=== PATIENT | female | born 1935 | race Caucasian/White ===

== ENCOUNTER 2016-12-16 22:43 | Inpatient (IN) | payer MEDICARE, OTHER ==
[~2016-12-16] VITALS: Ht 167.6 cm; Wt 104.5 kg
[2016-12-16] MEDS ORDERED: MIDAZOLAM 50 MG in DEXTROSE 5% 40 ML IV STA (22:47)
[2016-12-16] MEDS ORDERED: VECURONIUM 100 MG in DEXTROSE 5% 100 ML IV ONE (22:47)
[2016-12-16] MEDS ORDERED: CEFEPIME 2GM/50 ML (PMX) 50 ML IVPB STA (22:47)
[2016-12-16] MEDS ORDERED: SOD CHLORIDE 0.9% 1,000 ML IV STA (22:47)
[2016-12-16] MEDS ORDERED: SODIUM CHLORIDE 0.9% 500 ML BAG IV* STA (22:47)
[2016-12-16 22:49] VITALS: Ht 167.6 cm; Wt 104.5 kg
[2016-12-16] MEDS ORDERED: LOSA50TA6 PO (22:57)
[2016-12-16] MEDS ORDERED: ATOR10TA65 PO (22:57)
[2016-12-16] MEDS ORDERED: METO10TA92 PO (22:57)
[2016-12-16] MEDS ORDERED: LEVE500T8 PO (22:58)
[2016-12-16] MEDS ORDERED: ASCO500C7 PO (22:58)
[2016-12-16] MEDS ORDERED: METF-382 PO (22:59)
[2016-12-16] MEDS ORDERED: ERGO500014 PO (22:59)
[2016-12-16] MEDS ORDERED: FURO40TA4 PO (22:59)
[2016-12-16] MEDS ORDERED: DIGO125T6 PO (22:59)
[2016-12-16] MEDS ORDERED: CARV12.579 PO (23:00)
[2016-12-16] MEDS ORDERED: FENTAnyl 50 MCG/ML VIAL IV PRN (23:00)
[2016-12-16] MEDS ORDERED: POTA8CAP PO (23:00)
[2016-12-16] MEDS ORDERED: VANCOMYCIN 1 GM (PMX) 250 ML IVPB ONE (23:00)
[2016-12-16 23:02] LABS: HEMATOCRIT 40.8 % (37.0-47.0); HEMOGLOBIN 13.1 g/dl (12.0-16.0); MEAN CORPUSCULAR HEMOGLOBIN 29.3 pg (29.0-33.0); MEAN CORPUSCULAR VOLUME 91.5 fl (82.0-101.0); MEAN PLATELET VOLUME 9.1 fl (7.4-10.4); RED BLOOD COUNT 4.46 10^6/ul (4.20-5.40); RED CELL DISTRIBUTION WIDTH 14.4 % (11.5-14.5); UNCORRECTED WBC 21.8 10^3/ul (4.8-10.8); WHITE BLOOD COUNT 21.8 10^3/ul (4.8-10.8)
[2016-12-16 23:09] LABS: INR 2.06; PROTIME 23.4 Sec (12.2-14.2); PT RATIO 1.8
[2016-12-16 23:10] LABS: ALBUMIN 3.4 g/dl (3.3-4.9); CHLORIDE 104 mmol/L (97-110)
[2016-12-16 23:11] LABS: POTASSIUM 4.3 mmol/L (3.5-5.1); SODIUM 145 mmol/L (135-144)
[2016-12-16 23:12] LABS: CREATININE 1.13 mg/dl (0.44-1.00)
[2016-12-16 23:13] LABS: ALANINE AMINOTRANSFERASE 58 IU/L (13-69); ALBUMIN/GLOBULIN RATIO 1.03; ALKALINE PHOSPHATASE 147 IU/L (42-121); ANION GAP 29 (8-16); ASPARTATE AMINO TRANSFERASE 71 IU/L (15-46); BILIRUBIN,INDIRECT 0.3 mg/dl (0-1.1); BILIRUBIN,TOTAL 0.3 mg/dl (0.2-1.3); BLOOD UREA NITROGEN 16 mg/dl (7-20); CALCIUM 8.6 mg/dl (8.4-10.2); CARBON DIOXIDE 16 mmol/L (21-31); CONDITION 1; GLUCOSE 203 mg/dl (70-220); PHOSPHORUS 10.7 mg/dl (2.5-4.9); SUSPECT 1; TOTAL PROTEIN 6.7 g/dl (6.1-8.1)
[2016-12-16 23:14] LABS: LH ANALYZER COMMENTS 1; MAGNESIUM 2.1 mg/dl (1.7-2.5)
[2016-12-16] MEDS ORDERED: NORepinephrine 8MG/250 ML (PMX 250 ML ONE (23:25)
[2016-12-16 23:29] LABS: TROPONIN-I 0.017 ng/ml (0.00-0.12)
[2016-12-16 23:31] LABS: ACETAMINOPHEN < 10.0 ug/ml (10.0-30.0); ETHANOL < 10.0 mg/dl; SALICYLATE < 1.0 mg/dl (5.0-30.0)
[2016-12-16] MEDS ORDERED: SODIUM CHLORIDE 0.9% 1L BAG IV* STA (23:35)
[2016-12-16] MEDS ORDERED: NORepinephrine 8MG/250 ML (PMX 250 ML IV STA (23:35)
--- NOTE | 2016-12-16 23:38 | RADRPT ---
PROCEDURE: XR Chest. CLINICAL INDICATION: Pain status post trauma TECHNIQUE: AP Portable chest. COMPARISON: None available FINDINGS: The soft tissues and bones are remarkable for endotracheal tube 2.4 cm above the lisandra. Mild dextr oscoliosis, spondylosis and bilateral acromioclavicular osteoarthropathy is present. Mild cardiomeg asmita and vascular calcifications are present of the thoracic aorta. Mild interstitial edema is prese nt. No focal infiltrates, masses, or effusions are noted. A radio dense foreign foreign body is sup erimposed over the left lung apex which limits evaluation. No evidence for pneumothorax is present. IMPRESSION: 1. Endotracheal tube 2.4 cm above the lisandra. 2. Mild cardiomegaly and atherosclerotic vascular disease RPTAT: HDC .Ayah Hayden MD, Date Time Electronically viewed and signed by .Ayah Hayden MD, on 12/16/2016 23:37 .C/
[2016-12-16] MEDS ORDERED: IOHEXOL 100 ML ONE ×2 (23:40)
[2016-12-16] MEDS ORDERED: SOD CHLORIDE 0.9% 100 ML ONE (23:40)
[2016-12-17] VITALS (75 sets, daily range): BP systolic 0–123; BP diastolic 0–95; PULSE 0–87; RESP 14–22; TEMP 99.4
--- NOTE | 2016-12-17 00:04 | ERA ---
ER Documentation Chief Complaint Date/Time DATE: 12/16/16 TIME: 23:57 Chief Complaint BIBA RA 102,cardica arrest from home, ROSC HPI 81-year-old female prior history of stroke, chronic a aphasia who presents from home after cardiac arrest. The history is somewhat limited, later we were able to obtain history from family that states the patient did fall earlier today and they called 911. EMS reports PEA arrest upon arrival. The patient had return of spontaneous circulation after ACLS and 3 rounds of epi. The patient arrives intubated, obtunded and apparently hypoxic. Remainder of HPI is very limited. ROS All systems reviewed and are negative except as per history of present illness. Medications Home Meds Reported Medications Carvedilol* (Carvedilol*) 12.5 Mg Tablet, 12.5 MG PO DAILY, #60 TAB 12/16/16 Potassium Chloride* (Potassium Chloride*) 8 Meq Capsule.er, 8 MEQ PO DAILY, CAP 12/16/16 Furosemide* (Furosemide*) 40 Mg Tablet, 40 MG PO DAILY, TAB 12/16/16 Metformin Hcl* (Metformin Hcl*) 500 Mg Tablet, 500 MG PO WITH BREAKFAST, #30 TAB 12/16/16 Ergocalciferol* (Drisdol* (Vitamin D2)) 50,000 Unit Capsule, 51342 UNIT PO Q7D, CAP 12/16/16 Digoxin* (Lanoxin*) 0.125 Mg Tablet, 0.125 MG PO DAILY, TAB 12/16/16 Ascorbic Acid* (Vitamin C*) 500 Mg Capsule.sa, 500 MG PO DAILY, CAP 12/16/16 Levetiracetam* (Levetiracetam*) 500 Mg Tablet, 500 MG PO DAILY, TAB 12/16/16 Losartan Potassium* (Losartan Potassium*) 50 Mg Tablet, 50 MG PO DAILY, TAB 12/16/16 Atorvastatin Calcium (Atorvastatin Calcium) 10 Mg Tablet, 10 MG PO QHS, #30 TAB 12/16/16 Metoclopramide* (Reglan*) 10 Mg Tablet, 10 MG PO BID WITH MEALS, TAB 12/16/16 Allergies Allergies: Coded Allergies: No Known Allergy (Unverified , 12/16/16) PMhx/Soc History of Surgery: No Anesthesia Reaction: No Hx Neurological Disorder: Yes (cva) Hx Respiratory Disorders: No Hx Cardiac Disorders: Yes (htn, hld) Hx Psychiatric Problems: No Hx Miscellaneous Medical Probl: Yes (dm) Hx Alcohol Use: No Hx Substance Use: No Hx Tobacco Use: No Smoking Status: Never smoker FmHx Family History: No diabetes Physical Exam Vitals Vital Signs Date Time Temp Pulse Resp B/P Pulse Ox O2 Delivery O2 Flow Rate FiO2 12/17/16 01:30 101.1 12/17/16 01:05 94 22 100 100 12/17/16 00:24 95 12/16/16 23:30 90 20 84/63 99 Mechanical Ventilator 12/16/16 23:23 85 20 80/60 100 Mechanical Ventilator 12/16/16 23:20 143 20 48/24 100 Mechanical Ventilator 12/16/16 23:15 122 20 78/56 100 Mechanical Ventilator 12/16/16 23:10 135 20 121/101 94 Mechanical Ventilator 12/16/16 23:00 140 20 83/60 100 Mechanical Ventilator 12/16/16 22:57 131 18 92/78 100 Mechanical Ventilator 12/16/16 22:55 138 18 54/28 100 Mechanical Ventilator 12/16/16 22:49 99.9 147 22 109/69 100 12/16/16 22:45 138 27 100 100 Physical Exam General: Unresponsive, cyanotic head Head: Abrasion noted to the forehead Eyes: Fixed pupils ENT: Moist mucous membranes Neck: Supple, no lymphadenopathy no midline tenderness, patient placed in a c- collar Respiratory: Rhonchi bilaterally Cardiovascular: Irregularly irregular, no murmurs rubs gallops Abdominal: Soft, non-protuberant, no pulsatile mass : Deferred MSK: No spontaneous motor activity Neurologic: No spontaneous neurologic activity Skin: Abrasion to forehead Result Diagram: 12/16/16224912/16/162249 Results 24 hrs Laboratory Tests Test 12/16/16 22:50 12/17/16 01:45 Acetaminophen Level < 10.0ug/ml Activated Partial Thromboplast Time 99.8Sec Pending Alanine Aminotransferase (ALT/SGPT) 58IU/L Albumin 3.4g/dl Albumin/Globulin Ratio 1.03 Alkaline Phosphatase 147IU/L Anion Gap 29 Aspartate Amino Transf (AST/SGOT) 71IU/L Basophils # 10^3/ul Basophils % % Blood Urea Nitrogen 16mg/dl Calcium Level 8.6mg/dl Carbon Dioxide Level 16mmol/L Chloride Level 104mmol/L Clumped Platelets OCCASIONAL Creatinine 1.13mg/dl Differential Comment MANUAL DIFF Direct Bilirubin 0.00mg/dl Eosinophils # 0.410^3/ul Eosinophils % 2.0% Ethyl Alcohol Level < 10.0mg/dl Free Thyroxine Index 1.84ug/ml Giant Platelets FEW Globulin 3.30g/dl Glucose Level 203mg/dl Hematocrit 40.8% Hemoglobin 13.1g/dl INR International Normalized Ratio 2.06 2.68 Indirect Bilirubin 0.3mg/dl Lactic Acid Level 16.9mmol/L Lymphocytes # 7.010^3/ul Lymphocytes % 32.0% Magnesium Level 2.1mg/dl Mean Corpuscular Hemoglobin 29.3pg Mean Corpuscular Hemoglobin Concent 32.0g/dl Mean Corpuscular Volume 91.5fl Mean Platelet Volume 9.1fl Monocytes # 0.910^3/ul Monocytes % 4.0% Neutrophils # 11.610^3/ul Neutrophils % 53.0% Nucleated Red Blood Cells # 10^3/ul Nucleated Red Blood Cells % 3.0/100WBC Phosphorus Level 10.7mg/dl Platelet Count 20037^3/UL Pending Potassium Level 4.3mmol/L Prothrombin Time 23.4Sec Pending Prothrombin Time Ratio 1.8 2.3 Red Blood Count 4.4610^6/ul Red Cell Distribution Width 14.4% Salicylates Level < 1.0mg/dl Sodium Level 145mmol/L Thyroxine (T4) 4.9ug/dl Total Bilirubin 0.3mg/dl Total Protein 6.7g/dl Triiodothyronine (T3) Uptake 37.6% Troponin I 0.017ng/ml White Blood Count 21.810^3/ul D-Dimer Pending Fibrinogen Pending Plasma Fibrin Degradation Products Pending Thrombin Time Pending Current Medications Medications (Trade) Dose Ordered Sig/Elias Route PRN Reason Start Time Stop Time Status Last Admin Dose Admin Sodium Chloride (NS) 1,000 ml @ 1,000 mls/hr Q1H STAT IV 12/16/16 22:47 12/16/16 23:46 DC 12/16/16 22:59 Sodium Chloride (NS) 500 ml ONCE STAT IV* 12/16/16 22:47 12/16/16 22:52 DC 12/16/16 22:59 Fentanyl 25 mcg 25 mcg Q10M PRN IV SEDATION 12/16/16 23:00 Midazolam HCl 50 mg/Dextrose 50 ml @ 2 mls/hr Q24H STAT IV 12/16/16 22:47 12/17/16 22:46 12/17/16 00:58 Vecuronium [place] 100 mg/ Dextrose 100 ml @ 6.27 mls/hr [id number] ONCE IV 12/16/16 22:47 12/17/16 14:43 12/17/16 01:53 Cefepime HCl 50 ml @ 100 mls/hr ONCE STAT IVPB 12/16/16 22:47 12/16/16 23:16 DC 12/16/16 23:00 Vancomycin HCl 250 ml @ 125 mls/hr ONCE ONCE IVPB 12/16/16 23:00 12/17/16 00:59 DC 12/17/16 00:58 Norepinephrine (Levophed) 250 ml @ ud STK-MED ONCE .ROUTE 12/16/16 23:25 12/16/16 23:26 DC Sodium Chloride 3240 ml 3,240 ml BOLUS OVER 2 HOURS STAT IV* 12/16/16 23:35 12/16/16 23:37 DC 12/17/16 00:12 Norepinephrine (Levophed) 250 ml @ 7.5 mls/hr ONCE STAT IV 12/16/16 23:35 12/18/16 08:54 12/17/16 00:11 IV Flush 10 ml 10 ml STK-MED ONCE .ROUTE 12/16/16 23:40 12/16/16 23:41 DC 12/17/16 00:26 Sodium Chloride 100 ml @ ud STK-MED ONCE .ROUTE 12/16/16 23:40 12/16/16 23:41 DC 12/17/16 00:26 Iohexol 100 ml @ ud STK-MED ONCE .ROUTE 12/16/16 23:40 12/16/16 23:41 DC 12/17/16 00:26 Iohexol (Omnipaque) 100 ml @ ud STK-MED ONCE .ROUTE 12/16/16 23:40 12/16/16 23:41 DC 12/17/16 00:26 Amiodarone HCl 100 ml 100 ml ONCE STAT IV* 12/17/16 00:36 12/17/16 00:38 DC 12/17/16 00:47 Amiodarone HCl 500 ml @ 0 mls/hr ONCE STAT IV 12/17/16 00:36 12/17/16 00:38 DC Dextrose/Sodium Chloride (D5-1/2ns) 1,000 ml @ 100 mls/hr Q10H IV 12/17/16 01:11 Ondansetron HCl (Zofran Inj) 4 mg Q6H PRN IV NAUSEA AND/OR VOMITING 12/17/16 01:30 Albuterol (Ventolin Hfa) 4 puff Q2H RESP THERAPY PRN INH SHORTNESS OF BREATH 12/17/16 01:30 Ipratropium [place] (Atrovent Hfa) 4 puff Q2H RESP THERAPY PRN INH SHORTNESS OF BREATH 12/17/16 01:30 Acetaminophen (Tylenol Liquid) 650 mg Q6H PRN PO PAIN LEVEL 1-3 OR FEVER 12/17/16 01:30 Acetaminophen (Tylenol Supp) 650 mg Q4H PRN MS PAIN LEVEL 1-3 OR FEVER 12/17/16 01:30 Lorazepam (Ativan) 1 mg Q2H PRN IV ANXIETY 12/17/16 01:30 Pantoprazole (Protonix Iv) 40 mg DAILY@06 IV 12/17/16 06:00 Heparin Sodium (Porcine) 5000 unit 5,000 unit Q12 SC 12/17/16 09:00 Propofol 100 ml @ 3.137 mls/ hr PER PROTOCOL IV 12/17/16 01:30 Norepinephrine (Levophed) 250 ml @ 1.875 mls/ hr PER PROTOCOL IV 12/17/16 01:30 Vancomycin HCl VANCOMYCIN PER PHARMACY PER PROTOCOL XX 12/17/16 01:30 Cefepime HCl 50 ml @ 100 mls/hr Q12 IVPB 12/17/16 01:29 Sodium Chloride 1,000 ml @ 1,000 mls/hr Q1H ONCE IV 12/17/16 01:30 12/17/16 02:29 12/17/16 02:09 Vancomycin HCl (Vancocin) 250 ml @ 125 mls/hr ONCE ONCE IVPB 12/17/16 04:00 12/17/16 05:59 Acetaminophen 650 mg 650 mg ONCE ONCE MS 12/17/16 01:30 12/17/16 01:31 DC Vancomycin HCl 1.5 gm/Sodium Chloride 250 ml @ 83.333 mls/ hr Q24H IVPB 12/18/16 01:00 Vasopressin 60 unit/Sodium Chloride 60 ml @ 2.4 mls/hr ONCE STAT IV 12/17/16 01:39 12/18/16 02:38 12/17/16 02:06 Dopamine HCl/ Dextrose 250 ml @ 0 mls/hr ONCE STAT IV 12/17/16 01:39 12/17/16 01:40 DC 12/17/16 02:01 Hydrocortisone 100 mg 100 mg ONCE ONCE IV 12/17/16 02:00 12/17/16 02:01 DC Amiodarone HCl (Cordarone 900mg/ D5W Drip) 500 ml @ 0 mls/hr Q0M IV 12/17/16 02:00 12/18/16 01:59 12/17/16 02:04 Procedures/MDM EKG, MONITORS, & DIAGNOSTIC IMAGING: EKG #1: EKG: I reviewed and interpreted a 12-lead EKG. Rhythm: A. fib with RVR, Ectopy: None Intervals: Right bundle branch block ST segments: No elevations or depressions T waves: No contiguous inversions EKG #2 EKG: I reviewed and interpreted a 12-lead EKG. Rhythm: Normal sinus rhythm Ectopy: PVC Intervals: Right bundle branch block ST segments: No elevations or depressions T waves: No contiguous inversions Chest x-ray: I reviewed and interpreted a 1 view of the chest Mediastinum: No enlargement Cardiac silhouette: No cardiomegaly Airspace: Clear lung delatorre bilaterally without evidence of pneumothorax Bones: No evidence of fracture Endotracheal tube above the lisandra CT brain: IMPRESSION: 1. No evidence of acute intracranial hemorrhage or acute infarcts. However with contrast opacification of the vessels differentiating subarachnoid hemorrhage from contrast enhanced vessels is not possible. Recommend brain MRI with diffusion as clinically indicated. 2. 4 mm anterior communicating artery dilatation concerning for aneurysm. Recommend MR angiography or CT angiography of the [place] to optimally evaluate. 3. Chronic left middle cerebral artery infarct with ex vacuo dilatation of the left lateral ventricle. A call report was made to BEA Crawford at 12/17/2016 12:15:36 AM following the completion of the examination by the undersigned. [facility] cervical spine: IMPRESSION: 1. No evidence for acute fractures or traumatic subluxations. 2. Right subarticular recess osteophyte at C4-5 with associated moderate central canal stenosis. 3. Central 3 mm disk osteophyte complex and C5-6 with moderate central canal stenosis. 4. Mild broad-based disk osteophyte complex at the C6-7 level with mild central canal stenosis 5. Multilevel neural foraminal stenosis as described above at the C3-4 through C6-7 levels 6. Multinodular enlarged right thyroid lobe measuring 5.5 cm AP by 4.5 cm in transverse dimensions. Recommend thyroid ultrasound , potential biopsy, and correlation with serologies to differentiate multinodular goiter for thyroid carcinoma. A call report was made to BEA Crawford at 12/17/2016 12:28:05 AM following the completion of the examination by the undersigned. CT chest: IMPRESSION: No evidence of pulmonary embolism or aortic dissection. Mild cardiomegaly and congestive failure. Small right and trace left-sided pleural effusion with underlying atelectasis. Prominent main pulmonary artery consistent with pulmonary artery hypertension. Enlarged right thyroid. Cirrhotic liver. Status post cholecystectomy. Mild nonspecific stranding surrounding the pancreas. Clinical correlation is needed to exclude pancreatitis. T10 vertebral body fracture with 10 mm distraction. Osteopenia. A call report was made to Dr. García at 12:12 a.m. PROCEDURES: Direct laryngoscopy I performed direct laryngoscopy using the Glidescope to confirm endotracheal tube placement. A 3 oh blade was used to visualize the endotracheal tube passing through the vocal cords. Confirmation of placement was obtained. Central Line Note: Consent: Emergent Indication: Critically ill patient requiring specialized vascular access for fluid or pressor management Location: Right femoral vein Procedure: Sterile procedure was observed throughout insertion of the central line. The insertion site was prepped with sterile solution. Insertion of a needle into the vein was obtained with return of dark, nonpulsatile blood. The wire was then threaded through the needle without complication. . A small skin incision was made, the needle was removed intact, dilation of the vein was performed and insertion of a triple lumen catheter was completed. The catheter was then sutured to the skin. All 3 ports chani back and flushed without difficulty. A sterile dressing was applied. The patient tolerated the procedure well there were no complications. Synchronized cardioversion The patient was in A. fib with RVR with hypotension. The patient would benefit from synchronized cardioversion. The patient had synchronous cardioversion with 100 J a single cardioversion shock was applied with conversion to sinus rhythm and improved blood pressure from 40 systolic to 80 systolic. Consent was not obtained because of emergent condition LAB INTERPRETATION: Significant leukocytosis, lactic acidosis MEDICAL DECISION MAKING: The patient presents with PA cardiac arrest. Unclear etiology. The patient is hypotensive with A. fib with RVR, appears to be cyanotic on the head alone. There is also report of possible fall and head trauma earlier in the day. An extremely broad differential exist including sepsis, intracranial hemorrhage, acute coronary syndrome, pulmonary embolism, dissection among others. The patient requires aggressive resuscitation efforts. It should be noted that I have a conversation with the patient's son. I used a family member for an manufacture specialist. The patient wishes to have aggressive care and remains full code. ER COURSE: Upon arrival the patient's endotracheal tube was checked. The patient had an initial blood pressure of 106 systolic but rapidly declined and was persistently hypotensive. Peripheral IVs were inserted and the patient was written for aggressive fluid resuscitation with 30 cc/kg bolus of saline. Broad -spectrum antibiotics were ordered. The patient was noted to be in atrial fibrillation with RVR and was hypotensive and hemodynamically unstable. This was an indication for synchronized cardioversion. The patient was cardioverted as documented above with improvement of blood pressure but still the patient remained hypotensive. An emergent femoral vein central line was placed and the patient was started on levo. It should be noted that the patient was a PEA arrest. The patient had return of spontaneous circulation and meets criteria for therapeutic hypothermia. I do not believe this is a cardiogenic event and do not believe that the patient would benefit from emergent Manager Party activation. The patient may require studying once more stable at this time. The patient has multiple insults including significant leukocytosis and lactic acidosis. I am pending CT imaging at this time. The patient is in a cervical collar given recent description of head trauma. It is either the patient has what appears to be cyanosis to the head alone. This does raise my concern for possible PE versus dissection. CT of the chest will be ordered without laboratory testing given emergent condition possible. The patient's CT imaging is otherwise unremarkable other than a T10 fracture. The patient is remained in C-spine precautions and logroll precautions. The patient has persistent and progressive hypotension. The patient also had a run of NSVT. The patient was started on amiodarone bolus and drip. The patient was initiated on multiple pressors including vaso-and dopa, stress dose steroids were also added. At around 130 or 2 AM the family and produced medication list that shows evidence of the use of digoxin. A dig level has been sent. The patient also has persistent bleeding from IV sites and an elevated INR. The patient does not have a list of anticoagulant. Concern for DIC, DIC panel was ordered. I kept the patient and/or family informed of laboratory and diagnostic imaging results throughout the emergency room course. DISPOSITION PLAN: ICU CONSULTATION: Accepting care team and consultations: I discussed the current laboratory data, diagnostic imaging and emergency care provided. Admitting team: Dr. Carr Admitting team indication: Insurance directed Sepsis Documentation: Patient's infectious symptoms have not stabilized and the patient is at risk of rapid decompensation. The patient will be admitted for careful hydration, antibiotic therapy, and infectious source control. SEVERE SEPSIS CRITERIA: Infectious source: Unknown at this time consider pneumonia versus aspiration End organ damage indicated by: [Lactate > 2.0 mmol/L Hypotension (SBP < 90 or >40 mmHG drop or MAP < 65) Acute Resp Failure (sat < 92% w/o oxygen) SEPSIS MANAGEMENT Time of recognition of severe sepsis/septic shock: Upon arrival 3 HOUR BUNDLE Blood cultures x 2 before broad-spectrum antibiotics: Yes 30 ml/kg NS bolus Completed Initial lactate 16.9 Repeat lactate pending repeat SEPTIC SHOCK ASSESSMENT: lactic acid > 4.0 Persistent hypotension (SBP < 90 or 40 mmHg drop, MAP < 65) despite 30 mL/kg IV fluid bolus VOLUME REASSESSMENT FOR SEPTIC SHOCK: Reevaluation Time: 2:16 AM Temp of 101.1, pulse 94 respiration 22, blood pressure 84/63 pulse ox of 100% on ventilator Heart Regular rate & rhythm Lungs No crackles Skin Warm & dry Cap Refill Less than 2 seconds Peripheral pulses Radially present PERSISTENT HYPOTENSION TREATMENT: Comfort care No Central line right femoral vein Vasopressor started levo, vasa, dopa, I considered further perfusion assessment with CVP measurement, SCVO2, bedside ultrasound volume assessment, passive leg raise, trial of further fluid bolus. And proceeded with 30 ml/kg fluid bolus of NSS, broad spectrum antbiotics, and admission. CRITICAL CARE Critical care time 60 minutes Emergent fluid management while maintaining close respiratory support. Provision of immediate and broad-spectrum antibiotic therapy. Simultaneous assessment for possible sources in order to direct targeted therapy. Consideration for invasive and chemical support to prevent cardiopulmonary collapse. Critical care time is independent of procedures performed. Departure Diagnosis: Primary Impression: Cardiac arrest Additional Impressions: Septic shock NSVT (nonsustained ventricular tachycardia) Acute respiratory failure Qualified Code: J96.00 - Acute respiratory failure, unspecified whether with hypoxia or hypercapnia DIC (disseminated intravascular coagulation) T10 vertebral fracture Qualified Code: S22.079A - Closed fracture of tenth thoracic vertebra, unspecified fracture morphology, initial encounter Condition: Critical WANDY GARCÍA MD Dec 17, 2016 00:04
[2016-12-17 00:08] LABS: PARTIAL THROMBOPLASTIN TIME 99.8 Sec (25.0-35.0)
--- NOTE | 2016-12-17 00:13 | RADRPT ---
PROCEDURE: CT angiogram of the chest with contrast. CLINICAL INDICATION: Chest pain. TECHNIQUE: CT angiogram of the chest was obtained using a multi-detector high-resolution CT. Con tiguous axial images were obtained during the dynamic injection of 110 cc of Omnipaque 350 intraveno us contrast. Coronal and sagittal reformatted images were obtained. 3-D reformatted images were al so obtained. Images were reviewed on a PACS workstation. One or more of the following dose reduction techniques were used: - Automated exposure control. - Adjustment of the mA and/or kV according to patient size. - Use of iterative reconstruction technique. Exam CTD/vol = 19.04 mGy. Total exam DLP = 826.66 mGy-cm. COMPARISON: None. FINDINGS: The main pulmonary artery followed to the segmental divisions are well opacified. There is no filli ng defect or evidence of pulmonary embolism. The heart is increased in size. There is no pericardi al thickening or effusion. The aorta is of normal course and caliber with mild scattered atheroscle rotic calcifications. There is no evidence of aortic aneurysm or dissection. The main pulmonary art nuria is prominent measuring up to 3.7 cm in diameter. There is an endotracheal tube in place. The partially visualized right thyroid is enlarged measurin g 5.6 x 4.3 cm. There are no enlarged axillary lymph nodes. There are no enlarged mediastinal or h ilar lymph nodes by CT criteria. There are mild ground-glass opacities and septal thickening consis tent with congestive failure. There are small right and trace left-sided pleural effusions with und erlying atelectasis. The central tracheobronchial tree is within normal limits. Limited evaluation of the upper abdomen demonstrates mild diffuse nodular contour of the liver. The patient status post cholecystectomy. There is mild stranding surrounding the pancreas. There is a fracture of the T10 vertebral body with 10 mm distraction. There is diffuse demineralization. IMPRESSION: No evidence of pulmonary embolism or aortic dissection. Mild cardiomegaly and congestive failure. Small right and trace left-sided pleural effusion with underlying atelectasis. Prominent main pulmonary artery consistent with pulmonary artery hypertension. Enlarged right thyroid. Cirrhotic liver. Status post cholecystectomy. Mild nonspecific stranding surrounding the pancreas. Clinical correlation is needed to exclude panc reatitis. T10 vertebral body fracture with 10 mm distraction. Osteopenia. A call report was made to Dr. García at 12:12 a.m. .Chano Mcnair MD, MD Date Time Electronically viewed and signed by .Chano Mcnair MD, MD on 12/17/2016 00:13 .T/
[2016-12-17 00:15] LABS: EOSINOPHILS # 0.4 10^3/ul (0.0-0.5); MONOCYTE # 0.9 10^3/ul (0.3-0.9); NEUTROPHIL # 11.6 10^3/ul (1.6-7.5)
--- NOTE | 2016-12-17 00:16 | RADRPT ---
PROCEDURE: CT Brain without contrast. CLINICAL INDICATION: Altered mental status TECHNIQUE: A CT of the brain was performed on a [employer] 64-slice CT scanner utilizing axial imaging from the skull base through the vertex without IV contrast. While this study was performed without contrast this study followed with CT angiography of the chest with contrast and contrast is present. Multiplanar reformatted images were made. Images were reviewed on a PACS workstation. Th e CTDIvol is 42.30 mGy and the DLP is 810.25 mGycm. One of the following 3 dose reduction techniques were used: Automated exposure control; adjustment of the mA and/or kV according to patient size; or use of iterative reconstruction technique. COMPARISON: None available FINDINGS: There is no definite evidence for intracranial hemorrhage, mass effect, or midline shift. No extra- axial fluid collection is seen. The ventricles and sulci are age appropriate. Mild diffuse volume l oss is present. A large wedge-shaped decreased attenuation is present in the left middle cerebral a rtery distribution compatible with the left middle cerebral artery infarct which appears chronic. E x vacuo dilatation of the left lateral ventricle is noted. However, an acute superimposed on chroni c infarct may be present and recommend MRI with diffusion to further evaluate. The opacified intrac ranial vessels demonstrate an enlargement of the anterior communicating artery measuring 4 mm which is concerning for an aneurysm. Recommend MR angiography or follow-up CT angiography of the [place] o f [place] to further evaluate. The visualized scalp and calvarium are normal. The bilateral orbits are normal. The bilateral para nasal sinuses, mastoid air cells and middle ear cavities are clear. IMPRESSION: 1. No evidence of acute intracranial hemorrhage or acute infarcts. However with contrast opacifica tion of the vessels differentiating subarachnoid hemorrhage from contrast enhanced vessels is not po ssible. Recommend brain MRI with diffusion as clinically indicated. 2. 4 mm anterior communicating artery dilatation concerning for aneurysm. Recommend MR angiography or CT angiography of the [place] of [place] to optimally evaluate. 3. Chronic left middle cerebral artery infarct with ex vacuo dilatation of the left lateral ventric le. A call report was made to BEA Crawford at 12/17/2016 12:15:36 AM following the completion of the examination by the undersigned. RPTAT: HDC .Ayah Hayden MD, MD Date Time Electronically viewed and signed by .Ayah Hayden MD, MD on 12/17/2016 00:16 .C/
[2016-12-17 00:19] LABS: PLATELETS CLUMPS OCCASIONAL
--- NOTE | 2016-12-17 00:29 | RADRPT ---
PROCEDURE: CT Cervical Spine. CLINICAL INDICATION: Altered mental status TECHNIQUE: A CT of the cervical spine was performed on a [employer] 64-slice CT scanner utilizing hi gh-resolution axial imaging from the skull base through the cervical thoracic junction. Sagittal, c oronal, and multiplanar reformatted images were made. CTDI 22.25 mGy and DLP 439.39 mGy-cm. Although no contrast was administered for the purposes of this examination, this study followed that of a CT angiography of the chest and therefore contrast is noted. One of the following 3 dose reduction techniques were used during this CT examination: automated exp osure control; adjustment of the mA and /or kV according to patient size; or use of iterative recons truciton technique COMPARISON: None available FINDINGS: An endotracheal tube which contributes to motion artifact. There is a normal lordosis of the cervic al spine. No evidence for acute fractures or traumatic subluxations are present. The vertebral bod y heights are well preserved. The intervertebral disk spaces are normal. Generalized osteopenia is present. Degenerative changes of the atlanto-axial articulation is noted. The posterior elements are intact and normally aligned. The surrounding soft tissues are remarkable for a large multi nodular right thyroid lobe which measu res 5.5 cm AP by 4.5 cm in transverse dimensions. Recommend correlation with thyroid function tests and ultrasound to evaluate for multinodular goiter versus thyroid carcinoma. The bilateral lung ap ices demonstrate emphysematous changes. The specific axial levels are as follows: Occiput to C2: The visualized posterior fossa, skull base and bilateral mastoid air cells are clear . Atlantoaxial degenerative changes are present. No evidence for spinal canal stenosis or patholog y is present. C2-3: The intervertebral disk space is normal. The central canal, subarticular recess and neural f oramen are patent. C3-4: The intervertebral discs is normal. The central canal, subarticular recess and left neural f oramen are patent. Mild right neural foraminal stenosis is present. C4-5: The intervertebral discs is normal. A right subarticular recess osteophyte is present. Mild bilateral uncovertebral osteophytes and facet arthropathy is present. AP canal dimension is 7.7 mm . This results in a moderate central canal stenosis, right subarticular recess stenosis, and modera te right and mild left neural foraminal stenosis. C5-6: The intervertebral discs is normal. A central osteophyte is noted which measures 3 mm. AP c anal dimension is 7.3 mm. Mild bilateral uncovertebral osteophytes and facet arthropathy is present . Moderate central canal stenosis, bilateral subarticular recess stenosis and mild bilateral stenos is is present. C6-7: The intervertebral discs is normal. Mild osteophytic bar and bulge is present. The AP canal dimension is 9 mm. Right greater than left uncovertebral osteophyte and facet arthropathy is prese nt. These findings contribute to mild central canal stenosis, bilateral subarticular recess stenosi s, and moderate right and mild left neural foraminal stenosis. C7-T1: The intervertebral discs is normal. Central canal, subarticular recess and neural foramen a re patent. IMPRESSION: 1. No evidence for acute fractures or traumatic subluxations. 2. Right subarticular recess osteophyte at C4-5 with associated moderate central canal stenosis. 3. Central 3 mm disk osteophyte complex and C5-6 with moderate central canal stenosis. 4. Mild broad-based disk osteophyte complex at the C6-7 level with mild central canal stenosis 5. Multilevel neural foraminal stenosis as described above at the C3-4 through C6-7 levels 6. Multinodular enlarged right thyroid lobe measuring 5.5 cm AP by 4.5 cm in transverse dimensions. Recommend thyroid ultrasound , potential biopsy, and correlation with serologies to differentiate multinodular goiter for thyroid carcinoma. A call report was made to BEA Crawford at 12/17/2016 12:28:05 AM following the completion of the examination by the undersigned. RPTAT: HDC .Ayah Hayden MD, MD Date Time Electronically viewed and signed by .Ayah Hayden MD, MD on 12/17/2016 00:29 .C/
[2016-12-17] MEDS ORDERED: AMIODARONE 150MG/D5W BOLUS IV* STA (00:36)
[2016-12-17] MEDS ORDERED: AMIODARONE 900MG/D5W DRIP 500 ML IV STA (00:36)
[2016-12-17 00:40] LABS: PLATELET COUNT 160 10^3/UL (140-440)
[2016-12-17 01:12] LABS: T3 UPTAKE 37.6 % (23.5-40.5)
[2016-12-17] MEDS ORDERED: CEFEPIME 1GM/50 ML (PMX) 50 ML IVPB SCH (01:29)
[2016-12-17] MEDS ORDERED: ACETAMINOPHEN 650MG/20.3ML CUP PO PRN (01:30)
[2016-12-17] MEDS ORDERED: ONDANSETRON 4 MG INJ IV PRN (01:30)
[2016-12-17] MEDS ORDERED: VANCOMYCIN IV PER PHARMACY XX SCH (01:30)
[2016-12-17] MEDS ORDERED: PROPOFOL 100 ML IV SCH (01:30)
[2016-12-17] MEDS ORDERED: IPRATROPIUM (HFA) 12.9 GM INHALER INH PRN (01:30)
[2016-12-17] MEDS ORDERED: ALBUTEROL HFA 8 GM INHALER INH PRN (01:30)
[2016-12-17] MEDS ORDERED: LORAZEPAM 2 MG INJ IV PRN (01:30)
[2016-12-17] MEDS ORDERED: ACETAMINOPHEN 650 MG SUPP PR ONE (01:30)
[2016-12-17] MEDS ORDERED: NORepinephrine 8MG/250 ML (PMX 250 ML IV SCH (01:30)
[2016-12-17] MEDS ORDERED: ACETAMINOPHEN 650 MG SUPP PR PRN (01:30)
[2016-12-17] MEDS ORDERED: SOD CHLORIDE 0.9% 1,000 ML IV ONE (01:30)
[2016-12-17] MEDS ORDERED: DOPamine-D5W 1.6 MG/ML 250 ML IV STA (01:39)
[2016-12-17] MEDS ORDERED: VASOPRESSIN 60 UNIT in SOD CHLORIDE 0.9% 57 ML IV STA (01:39)
[2016-12-17] MEDS ORDERED: AMIODARONE DRIP 1 MG/MIN X 6 HRS, THEN 0.5 MG/MIN X 18 HRS THEN DC IV SCH (02:00)
[2016-12-17] MEDS ORDERED: HYDROCORTISONE 100 MG INJ IV ONE (02:00)
[2016-12-17 02:11] LABS: INR 2.68; PROTIME 28.9 Sec (12.2-14.2); PT RATIO 2.3
[2016-12-17 02:13] LABS: THROMBIN TIME 47.3 SEC (13.8-19.1)
[2016-12-17 02:24] LABS: AADO2 Arterial 349.7 mmHg (7.0-24.0); Arterial Base Excess -14.9 mmol/L (-3.0-3); Arterial COHb 0.7 % (0.0-3.0); Arterial Fraction of Oxyhgb 98.1 % (93.0-99.0); Arterial HCO3 13.1 mmol/L (22.0-26.0); Arterial MetHb 0.3 % (0.0-1.5); Arterial Total Hemglobin 13.2 g/dl (12.0-18.0); Blood Gas Mean Airway Pressure 17; MODE VENT - AC
[2016-12-17 02:36] LABS: PARTIAL THROMBOPLASTIN TIME 97.2 Sec (25.0-35.0)
[2016-12-17 02:51] LABS: PLATELET COUNT 192 10^3/UL (140-440)
[2016-12-17 03:10] LABS: FIBRIN SPLIT PRODUCT >80 and <160 ug/ml (<10)
[2016-12-17] MEDS ORDERED: VANCOMYCIN 1 GM in NS 250 ML IVPB ONE (04:00)
--- NOTE | 2016-12-17 04:30 | RADRPT ---
PROCEDURE: CT Abdomen and pelvis without contrast. CLINICAL INDICATION: Abdominal pain. TECHNIQUE: CT scan of the abdomen and pelvis was performed on a multi-detector high-resolution CT scanner. Contiguous axial images were obtained from the lung bases to the ischial tuberosities wit hout intravenous contrast. Coronal and sagittal reformatted images were also obtained. Images were reviewed on the PACS workstation. One or more of the following dose reduction techniques were used: - Automated exposure control. - Adjustment of the mA and/or kV according to patient size. - Use of iterative reconstruction technique. Exam CTD/vol = 14.82 mGy. Total exam DLP = 901.95 mGy-cm. COMPARISON: None. FINDINGS: Evaluation of the lung bases demonstrates moderate right and small left-sided pleural effusion with underlying atelectasis/consolidations. The heart is mildly enlarged. There is congestive failure. T here is a nasogastric tube extending to the stomach. Abdomen: The liver is normal in size with a mild diffuse nodular contour. There is no focal mass o r dilatation of the biliary tree. The patient is status post cholecystectomy. There is mild strand ing surrounding the pancreas. The spleen and bilateral adrenal glands are within normal limits. Bi lateral kidneys are normal in size with no contour deforming mass identified. There is residual con trast within bilateral renal collecting systems. There is no hydronephrosis or hydroureter. There is no retroperitoneal adenopathy. The abdominal aorta is of normal caliber with scattered atheroscl erotic calcifications. There is no abnormal bowel wall thickening or distension. There is no bowel obstruction or free air . A normal appendix is identified. There is no diverticulosis or diverticulitis. There is no asci becca. Pelvis: The bladder contains a [place] catheter. There is a calcified uterine fibroid measuring 1.9 x 1.6 cm. There is no significant pelvic adenopathy or free fluid. Evaluation of the osseous structures demonstrates no suspicious lytic or blastic lesion. There is a fracture of the T10 vertebral body with 10 mm distraction. There is diffuse bony demineralization. IMPRESSION: Moderate and small left-sided pleural effusion with underlying atelectasis/consolidations, increased compared with 12/16/2016. Mild cardiomegaly and congestive failure, unchanged. Mild nonspecific stranding surrounding the pancreas, unchanged. Clinical correlation is needed to ex clude pancreatitis. T10 vertebral body fracture with 10 mm distraction, unchanged. Mild diffuse nodular contour of the liver suggestive of cirrhosis. Clinically correlate. Status post cholecystectomy. Vascular calcifications reflective of atherosclerosis. Calcified uterine fibroid. Osteopenia. .Chano Mcnair MD, MD Date Time Electronically viewed and signed by .Chano Mcnair MD, on 12/17/2016 04:30 .T/
[2016-12-17 04:40] LABS: D-DIMER > 10000.00 ng/ml (<460)
[2016-12-17] MEDS: DEXTROSE 5%-0.45% NACL 1,000 ML IV SCH ×2 (05:42→11:11)
[2016-12-17 05:59] LABS: HEMATOCRIT 41.2 % (37.0-47.0); HEMOGLOBIN 13.3 g/dl (12.0-16.0); MEAN CORPUSCULAR HEMOGLOBIN 29.4 pg (29.0-33.0); MEAN CORPUSCULAR HGB CONC 32.3 g/dl (32.0-37.0); MEAN CORPUSCULAR VOLUME 91.1 fl (82.0-101.0); RED BLOOD COUNT 4.52 10^6/ul (4.20-5.40); RED CELL DISTRIBUTION WIDTH 14.3 % (11.5-14.5); UNCORRECTED WBC 32.1 10^3/ul (4.8-10.8); WHITE BLOOD COUNT 32.1 10^3/ul (4.8-10.8)
[2016-12-17] MEDS ORDERED: PANTOPRAZOLE 40 MG INJ IV SCH (06:00)
[2016-12-17 06:17] LABS: CONDITION 1; LH ANALYZER COMMENTS 1; MEAN PLATELET VOLUME 7.6 fl (7.4-10.4); PLATELET COUNT 173 10^3/UL (140-440); SUSPECT 1
[2016-12-17 06:25] LABS: POTASSIUM 4.7 mmol/L (3.5-5.1)
[2016-12-17 06:27] LABS: BILIRUBIN,INDIRECT 0.8 mg/dl (0-1.1); BILIRUBIN,TOTAL 0.8 mg/dl (0.2-1.3); CREATININE 1.42 mg/dl (0.44-1.00)
[2016-12-17 06:28] LABS: ALBUMIN/GLOBULIN RATIO 0.9; CALCIUM 7.3 mg/dl (8.4-10.2); TOTAL PROTEIN 6.3 g/dl (6.1-8.1)
[2016-12-17] MEDS ORDERED: DOPamine-D5W 1.6 MG/ML 250 ML IV SCH (07:00)
[2016-12-17] MEDS ORDERED: NORepinephrine 32 MG in DEXTROSE 5% 218 ML IV SCH (08:00)
[2016-12-17 08:05] LABS: LYMPHOCYTES # 2.2 10^3/ul (0.8-2.9); MONOCYTE # 1.6 10^3/ul (0.3-0.9); NEUTROPHIL # 19.9 10^3/ul (1.6-7.5)
--- NOTE | 2016-12-17 08:11 | HP ---
DATE OF ADMISSION: 12/17/2016 TIME SEEN: 4 a.m. CHIEF COMPLAINT: Cardiac arrest. HISTORY OF PRESENT ILLNESS: The patient is an 81-year-old female with a history, based on her medica tion list, of diabetes, hypertension, dyslipidemia, a history of stroke with aphasia and probable se izure and atrial fibrillation, who presented to the emergency department after experiencing cardiac arrest. It looks like the patient is still at home and the family called 911. When EMS arrived, th e patient was noted to be in PEA arrest. After 3 rounds of AP the patient had return of spontaneous circulation. When she arrived to the ER the patient was noted to be in atrial fibrillation with RV R, with initial blood pressure documented to be 109/64. Unfortunately, within a few minutes the pat ient became hypotensive, with a lowest documented blood pressure of 48/24. She was cardioverted suc cessfully in the ER. The patient was also febrile, with a temperature as high as 101.1, with labora tory values showing a WBC of 22,000, bicarbonate 16, creatinine 1.13. Anion gap was 29, AST 71, [place] sphorus almost 11, and an initial lactic acid of 17. Her coagulation profile shows an INR of 2.06 a nd a PTT of 100. ABG showed a pH of 7.15, pCO2 38, pO2 of 325, bicarbonate of 13 while the patient was on the vent on 100% FIO2. The patient was started on a presser, antibiotics and IV fluid, and a miodarone and Tylenol were also given in the ER. Several imagings were done, with chest x-ray showi ng cardiomegaly and atherosclerotic vascular disease, without any infiltrate or effusion. Brain CT showed no evidence of acute intracranial hemorrhage or infarct; however there was a 4-mm anterior co mmunicating artery dilatation concerning for aneurysm. Cervical spine CT showed multilevel neural f oraminal stenosis above C3-C4 through C6-C7, as well as osteophytes and a multinodular enlarged righ t thyroid lobe measuring 5.[address] pulmonary angiogram showed no evidence of aortic dissectio n or embolism, but showed a cirrhotic liver and findings consistent with pulmonary artery hypertensi on. CT abdomen and pelvis that was done [address] pulmonary angiogram showed, again, the cirrhotic liver, but also showed moderate left-sided pleural effusion with underlying atelectasis/co nsolidation. Currently the patient is admitted to the ICU. REVIEW OF SYSTEMS: Unable to assess. PAST MEDICAL HISTORY: As per HPI. PAST SURGICAL HISTORY: Unknown. SOCIAL HISTORY: Unknown. ALLERGIES: NO KNOWN DRUG ALLERGIES. HOME MEDICATIONS: 1. Lipitor. 2. Coreg. 3. Digoxin. 4. Losartan. 5. Keppra. 6. Lasix. 7. Potassium. 8. Reglan. 9. Metformin. 10. Ascorbic acid. 11. Vitamin D. PHYSICAL EXAMINATION: VITAL SIGNS: Blood pressure 126/93, heart rate 98, respiratory rate 18, temperature 99.4, oxygen sa turation 100% on vent on 50% FIO2. Note that the patient is on a presser. GENERAL: Intubated, patient unresponsive. HEENT: On her forehead there is a small laceration. Pupils are not reactive to light. CARDIOVASCULAR: Irregularly irregular. LUNGS: Lungs sound congested, with scattered rhonchi. ABDOMEN: Soft, nondistended. There are positive bowel sounds. EXTREMITIES: No edema. NEUROLOGIC: The patient is currently unresponsive. LABORATORY: Pertinent positives as mentioned in the HPI. IMPRESSION: 1. Status post cardiac arrest with ROSC after 3 rounds of AP. 2. Vent-dependent respiratory failure, secondary to above. 3. Likely anoxic brain injury. 4. Sepsis, likely secondary to aspiration pneumonia. 5. Presumed acute kidney injury. 6. Severe lactic acidosis. 7. Disseminated intravascular coagulation (DIC). 8. History of stroke, with chronic aphasia. 9. 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 10. Atrial fibrillation with RVR, status post cardioversion. PLAN: Continue pressor and ventilator support. Continue IV fluid. Continue broad spectrum antibio tics. Will follow up final culture results and place an ID consult. Will place a pulmonary consult to help manage her vent. Will obtain a 2D echo, trend her troponin and place a cardiology consult. At this point the patient has multiorgan failure and her prognosis is very poor. Will also place a hematology consult, given DIC. Will continue her amiodarone for her arrhythmia. Again, the patient has a very poor prognosis and will need to have a family meeting to discuss about code status and care, but at this point the patient is FULL CODE and we will do everything po ssible. Further workup and management per clinical course. Total critical time spent was about 45 minutes. Dictated By: ANG CORONA/MARYCRUZ Conf#: [id number] DID#: [id number]
[2016-12-17] MEDS: HEPARIN 5,000 UNIT/0.5 ML SYG SC SCH ×2 (08:33→20:39)
[2016-12-17] MEDS ORDERED: DOPamine 1,600 MG in DEXTROSE 5% 210 ML IV SCH (10:30)
[2016-12-17] MEDS: CEFEPIME 1GM/50 ML (PMX) 50 ML IVPB SCH ×2 (10:30→20:38)
[2016-12-17] MEDS ORDERED: DOPamine 1.6 MG/ML D5W 250 ML IV SCH (11:00)
[2016-12-17] MEDS: DOPamine 1,600 MG in DEXTROSE 5% 210 ML IV SCH ×2 (12:20→19:18)
[2016-12-17 12:45] LABS: AADO2 Arterial 567.5 mmHg (7.0-24.0); Arterial Base Excess -31.4 mmol/L (-3.0-3); Arterial COHb 0.9 % (0.0-3.0); Arterial Fraction of Oxyhgb 94.5 % (93.0-99.0); Arterial HCO3 4.3 mmol/L (22.0-26.0); Arterial MetHb 0.3 % (0.0-1.5); Arterial Total Hemglobin 14.4 g/dl (12.0-18.0); MODE VENT - AC
[2016-12-17] MEDS ORDERED: NA BICARBONATE 8.4% 50 ML SYG ONE ×2 (13:08→13:14)
[2016-12-17] MEDS ORDERED: NA BICARBONATE 8.4% 50 ML SYG IV ONE (13:30)
[2016-12-17] MEDS ORDERED: VASOPRESSIN 60 UNIT in DEXTROSE 5% 57 ML IV SCH (13:30)
[2016-12-17] MEDS ORDERED: SODIUM BICARBONATE (IV ADD) 150 MEQ in DEXTROSE 5% 1,000 ML IV SCH (15:00)
--- NOTE | 2016-12-17 15:20 | CONS ---
DATE OF ADMISSION: 12/17/2016 DATE OF CONSULTATION: 12/17/2016 TYPE OF CONSULTATION: Pulmonary. REFERRING PHYSICIAN: Corey Carr MD REASON FOR CONSULTATION: Status post cardiopulmonary arrest. HISTORY OF PRESENT ILLNESS: This is an 81-year-old woman who suffered a cardiac arrest at home. Pa ramedics were called in. Upon arrival, the patient was noted to be in pulseless electrical activity arrest. ACLS protocol was performed. Subsequently, the patient was intubated and transferred to [facility] for further care. In the ER, the patient had a bout of atrial fibrillation with rapid ventric ular response and an episode of SVT which was cardioverted. The patient was started on IV amiodaron e infusion as well. The patient subsequently transferred to ICU for further care. A CT angio of [facility] chest was done, which was negative for acute pulmonary embolism. At present, the patient is hypot ensive requiring multiple pressors. She is completely unresponsive. Pupils are dilated and fixed. No further history available at this time. REVIEW OF SYSTEMS: Unable to obtain. PAST MEDICAL HISTORY: Apparently history of diabetes mellitus, hypertension, dyslipidemia, history of CVA with aphasia, seizure disorder, history of paroxysmal atrial fibrillation. on CAT scan , she is noted to have cirrhotic liver as well. ALLERGIES: NO KNOWN ALLERGIES. SOCIAL HABITS: Unknown. FAMILY HISTORY: Unknown. PHYSICAL EXAMINATION: VITAL SIGNS: Blood pressure 94/85 on multiple pressors, pulse 60, respirations 18, temperature afeb rile. HEENT: Pupils are fixed and dilated, orally intubated. NECK: Cervical collar in place. LUNGS: Fair breath sounds bilaterally. CARDIOVASCULAR: S1, S2 normal. ABDOMEN: Soft, obese, nontender. No organomegaly or masses noted. EXTREMITIES: No clubbing, cyanosis noted. 1+ edema present. NEUROLOGIC: Unresponsive. LABORATORY DATA: ABG done yesterday showed a pH of 7.15, pCO2 of 38, pO2 of 325. Sodium 141, potas sium 4.7, chloride 106, CO2 of 15, BUN 26, creatinine 1.42, glucose 246. Lactic acid is 10.9. Trop onin elevated at 1.36. WBC 32.1, hemoglobin 13.3, hematocrit 41.2, platelets 173. IMAGING: Chest x-ray shows no acute infiltrate. IMPRESSION: 1. Status post cardiopulmonary arrest. 2. Acute respiratory failure, hypoxemic. 3. Hypotensive shock. 4. Elevated white count, question related to systemic inflammatory response syndrome. 5. Acute kidney injury. 6. Severe metabolic acidosis due to lactic acidosis. 7. Disseminated intravascular coagulation. 8. History of cerebrovascular accident. 9. Likely anoxic brain injury. 10. Status post cardiac arrhythmias. RECOMMENDATIONS 1. Continue ventilator support. 2. Obtain ABG. 3. Check cultures. 4. Empiric antibiotics. 5. Cardiology evaluation pending. 6. Continue pressors. 7. Prognosis appears extremely dismal. 8. Follow up labs, x-ray and ABGs. Dictated By: IRAIS ZHU MD, MA/MARYCRUZ Conf#: [id number] DID#: [id number]
--- NOTE | 2016-12-17 20:35 | RADRPT ---
Echocardiogram Report Patient Name: JAYMIE BEAN Gender: Female Date: 1935 Study Date: 17-Dec-2016 Search Coordinator: DOMINGUEZ Location: Ref. Physician: ANG FARFAN Quality: Technically Difficult Study Procedures: Transthoracic echocardiogram examination, no parasternal images. Indications: Cardiac Arrest. 2D/M Mode Doppler Measurement Value Normal Range Measurement Value Normal Range AV Peak Saturnino 0.8 m/sec AV Peak PG 2.3 mmHg LVOT Peak Saturnino 0.5 m/sec TR Peak Saturnino 3.3 m/sec TR Peak PG 43.6 mmHg RVSP 58.6 mmHg Findings Left Ventricle: Normal left ventricular cavity size. Severe left ventricular systolic dysfunction. Tissue Doppler/Mitral Doppler indices are consistent with impaired relaxation (Stage I diastolic dysfunction). Normal left ventricular wall thickness. The left ventricle is not well visualized. The left ventricular ejection fraction is visually estimated at 50 %. Right Ventricle: The right ventricle is not well visualized. Mild enlargement of right ventricle. Left Atrium: The left atrium is normal in size and appearance. Right Atrium: Severely enlarged that measures >50mm. Atrial Septum: Normal atrial septum. Mitral Valve: Mild mitral annular calcification. Mild mitral regurgitation. Aortic Valve: The aortic valve is not well visualized. No hemodynamically significant aortic stenosis by Doppler. No aortic regurgitation. Tricuspid Valve: Normal appearance of the tricuspid valve. The estimated Peak PA Systolic Pressure is 59 mmHg. There is moderate tricuspid regurgitation. Pulmonic Valve: The pulmonic valve is not well visualized. Pericardium: Normal pericardium with no significant pericardial effusion. Right pleural effusion seen. Aorta: The aorta is not well visualized. IVC: Inferior vena cava without respiratory collapse, however, patient on ventilator. Pulmonary Artery: Pulmonary artery is not well visualized. Conclusions 1.Normal left ventricular cavity size. Severe left ventricular systolic dysfunction. Tissue Doppler/Mitral Doppler indices are consistent with impaired relaxation (Stage I diastolic dysfunction). Normal left ventricular wall thickness. The left ventricle is not well visualized. The left ventricular ejection fraction is visually estimated at 50 % but could not be well seen. 2.The right ventricle is not well visualized. enlargement of right ventricle with decreased RV systolic function. 3.Severely enlarged that measures >50mm. 4.Mild mitral annular calcification. Mild mitral regurgitation. 5.The aortic valve is not well visualized. No hemodynamically significant aortic stenosis by Doppler. No aortic regurgitation. 6.Normal appearance of the tricuspid valve. The estimated Peak PA Systolic Pressure is 59 mmHg. There is moderate tricuspid regurgitation. 7.Inferior vena cava without respiratory collapse, however, patient on ventilator. 8.VERY SUBOPTIMAL STUDY. Electronically Signed By: Amor Conner 17-Dec-2016 20:35:07 -0800 Patient Name: JAYMIE BEAN Study Date: 17-Dec-[id number]
[2016-12-18] MEDS ORDERED: VANCOMYCIN 1.5 GM in SOD CHLORIDE 0.9% 250 ML IVPB SCH (01:00)
--- NOTE | 2016-12-18 11:34 | SP ---
DATE OF PROCEDURE: 12/17/2016 ELECTROENCEPHALOGRAM REPORT EEG: #[id number]. ROOM: #[facility]. HISTORY: This is an 81-year-old woman who was admitted following cardiorespiratory arrest. This EE G was ____ electrocerebral silence. CURRENT MEDICATIONS: 1. Dopamine. 2. Sodium bicarbonate. 3. Vasopressin. 4. Cefepime. 5. Norepinephrine. PROCEDURE: Utilizing a 16-channel EEG machine, cap scalp electrodes were applied in accordance with the International 10-20 system. [id number] and [id number] montages were displayed. Electric al impedances were measured and reported. DESCRIPTION: During the resting state, posterior dominant rhythm of about 3 to 4 Hz was seen with a burst suppression type pattern. Photic stimulation had no response. Hyperventilation was not perf ormed. Low amplitude waves were seen throughout the tracing. There was no epileptiform activity see n. INTERPRETATION: This is a severely abnormal EEG because of the presence of burst suppression patter n and extensive slowing in bihemispheric distribution, consistent with severe encephalopathy. Pleas e correlate these findings with the patient's clinical picture. Dictated By: MALLORIE PERRY/MARYCRUZ Conf#: [id number] DID#: [id number]
--- NOTE | 2016-12-20 08:16 | CONS ---
DATE OF ADMISSION: 12/17/2016 DATE OF CONSULTATION: 12/17/2016 REFERRING PHYSICIAN: . REASON FOR CONSULTATION: Cardiopulmonary arrest. CHIEF COMPLAINT: Cardiopulmonary arrest. HISTORY OF PRESENT ILLNESS: Thank you for this referral. History obtained from the patient's famil y, including her son and the family members, discussion with multiple physicians, and review of the chart and discussion with the staff. This is an unfortunate, 81-year-old female with history of a C VA, probably atrial fibrillation, who was brought in after a cardiopulmonary arrest. According to t he son, the patient was walking, but suddenly stopped and passed out and fell down and hit her mirro r. There is no significant change the previous days prior to that. No reported chest pain or press ure and no palpitation. Apparently, it took a while before the family called 911, and according to the family, it took about 10 minutes. By the time the EMS arrived, the patient was reportedly in PE A arrest. She spontaneous circulation and was brought into the emergency room and was noted t o be in atrial fibrillation with rapid ventricular response. She became hypotensive again and was c ardioverted in the emergency room. She was also febrile with a low-grade temperature of 101.1. Has been transferred to ICU. Was felt not to be a candidate for hypothermia protocol. The patient has become more and more hypotensive and in shock and required currently on 3 different pressors to luba ntain her blood pressure. Currently has a lot PACs and PVCs, but remains in sinus rhythm. Her trop onins are rising as well. The patient is unresponsive. PAST MEDICAL HISTORY: History of diabetes, hypertension, dyslipidemia, probably atrial fibrillation , and history of cerebrovascular accident a few years ago, with resultant right-sided weakness and a phasia. SOCIAL HISTORY: Does not smoke or drink. Lives with the family. ALLERGIES: NO REPORTED ALLERGIES. MEDICATIONS: As per medication reconciliation, personally reviewed, which include: 1. Lipitor. 2. Coreg. 3. Digoxin. 4. Losartan. 5. Keppra. 6. Lasix. 7. Potassium. 8. Reglan. 9. . 10. Vitamin D. FAMILY HISTORY: No reported early coronary artery disease. REVIEW OF SYSTEMS: As above mentioned; otherwise, all negative. PHYSICAL EXAMINATION VITAL SIGNS: Temperature 96.1, T-max is 101.1, heart rate of 67, blood pressure 96/82, respiratory rate of 18, saturating 97%. HEAD, EARS, EYES, NOSE, AND THROAT: Normocephalic, atraumatic. Obese female. Eyes: No corneal re flex. CARDIOVASCULAR: Regular rate and rhythm. No systolic murmur. PULMONARY: Anteriorly, with no wheezes. Minimal rhonchi, diffuse. GASTROINTESTINAL: Obese, soft. EXTREMITIES: Positive lower extremity edema. NEUROLOGICAL: No response to verbal or painful stimulus. LABORATORY: Sodium 141, potassium 4.1, BUN of 26, creatinine 1.42, glucose of 246. 16.9, 12. 1, and10.9. Troponin initially was 0.017 and subsequently was 1.36. Albumin is 3. less than 0.4. INR on admission was 2 and has increased to 2.6. PTT was and 97.2. CT pulmonary angiogram was done already, which showed no evidence of pulmonary embolus or aortic dis section. Echocardiogram was also done, which was personally also reviewed. It was a very technical ly difficult study. Ejection fraction could not be accurately seen, but ejection fraction probably estimated about 50%. Right-sided chamber appeared to be, however, dilated and with a hypokinetic ri ght ventricle. PA pressure 59 mmHg. EKG, which was done in the emergency room, was personall y reviewed. It shows a sinus rhythm with frequent PVCs, right bundle branch block. Initial EKG has shown atrial fibrillation, right bundle branch block. ABG most recently showed pH of 6.73, pO2 of 112, pCO2 of 32.8, bicarbonate of 4.3. ASSESSMENT AND PLAN 1. Status post cardiopulmonary arrest. 2. Severe shock and sepsis. 3. Acute hypoxemic respiratory failure. 4. Severe lactic acidosis. 5. Non-ST elevation myocardial infarction, probably related to above. 6. Acute renal failure. 7. Pulmonary hypertension. 8. Atrial fibrillation, paroxysmal, status post cardioversion. 9. History of diabetes. 10. History of dyslipidemia. 11. History of hypertension, currently in shock. RECOMMENDATIONS: We will continue with supportive care. I have discussed at length with the patien irma's son regarding code status. At this point, the son wants the patient to be a DO NOT RESUSCITATE. We will respect their wishes. We will continue with the current pressors, though, per her request . I would discontinue the subcutaneous heparin because of her coagulopathy. No aspirin will be giv en due to her coagulopathy. Antibiotic is managed as per internal medicine. We will continue with the ICU care for now. Ventilator support will be continued as well. Prognosis is very poor, and th e patient appeared to have severe anoxic brain injury as well. We will continue with the current pr essors. More than 40 minutes of critical care time were spent in management of this patient, excluding any p rocedures. Dictated By: BETH CAST MD AV/MARYCRUZ Conf#: [id number] DID#: [id number] CC: ANG FARFAN MD;*EndCC*
== END 2016-12-17 22:45 | disposition expired | DRG 871 ==
LOC: E/R 22:43 → ICU 12-17 01:17
PROVIDERS: ADMIT Internal Medicine; ATTEND Internal Medicine
PROC: 5A1945Z Respiratory Ventilation, 24-96 Consecutive Hours (ICD-10-PCS; principal; 2016-12-17)
PROC: 06HM33Z Insertion of Infusion Device into Right Femoral Vein, Percutaneous Approach (ICD-10-PCS; 2016-12-17)
DX: A41.9 Sepsis, unspecified organism (principal); R65.21 Severe sepsis with septic shock; J96.01 Acute respiratory failure with hypoxia; I21.4 Non-ST elevation (NSTEMI) myocardial infarction; D65 Disseminated intravascular coagulation [defibrination syndrome]; I46.9 Cardiac arrest, cause unspecified; R57.8 Other shock; J69.0 Pneumonitis due to inhalation of food and vomit; G93.1 Anoxic brain damage, not elsewhere classified; E87.2 Acidosis; I95.9 Hypotension, unspecified; I69.351 Hemiplegia and hemiparesis following cerebral infarction affecting right dominant side; S22.079A Unspecified fracture of T9-T10 vertebra, initial encounter for closed fracture; R47.01 Aphasia; Z99.11 Dependence on respirator [ventilator] status; N17.9 Acute kidney failure, unspecified; I69.320 Aphasia following cerebral infarction; I67.1 Cerebral aneurysm, nonruptured; I10 Essential (primary) hypertension; I27.2 Other secondary pulmonary hypertension; I48.0 Paroxysmal atrial fibrillation; E11.9 Type 2 diabetes mellitus without complications; Y92.009 Unspecified place in unspecified non-institutional (private) residence as the place of occurrence of the external cause; W18.39XA Other fall on same level, initial encounter; R94.01 Abnormal electroencephalogram [EEG]; Z66 Do not resuscitate; Z51.5 Encounter for palliative care; Z53.1 Procedure and treatment not carried out because of patient's decision for reasons of belief and group pressure
CPT/HCPCS: 36415; 36600; 70450; 71010; 71275; 72125; 74176; 80053; 80162; 80306; 82803; 83605; 83690; 83735; 84100; 84436; 84479; 84484; 85025; 85049; 85362; 85378; 85384; 85610; 85670; 85730; 86850; 86900; 86901; 87040; 87081; 93005; 93306; 94002; 94003; 94770; 96374; 96375; C9113; J0282; J0692; J1265; J1720; J3370; J7030; J7040; J7042; J7050; J7070; Q9967